=== PATIENT | female | born 1960 | race Caucasian/White ===

== ENCOUNTER 2017-02-06 15:39 | Emergency (ER) | payer MEDICAID ==
[~2017-02-06] VITALS: Ht 165.1 cm; Wt 63.5 kg
[2017-02-06 15:40] VITALS: BP_SYST 112
--- NOTE | 2017-02-06 15:40 | NUR ---
Patient triaged and placed in waiting room. VSS and patient appears in no acute distress at this time. Accompanied by SELF, awaiting available bed, and MD notified of need for MSE.
--- NOTE | 2017-02-06 15:45 | NUR ---
Kelli RAY saw the pt in triage room to examination.
--- NOTE | 2017-02-06 17:00 | NUR ---
Pt was brought to bed 4 with complaints of right shoulder pain, pt states was lifting luggage and fell and the luggage fell on the pt's shoulder yesterday. Pt denies hitting head or loss of consciousness, n/v or fever. Pt ambulated into the ER with no noted difficulty and x ray was performed in the waiting room and there is a fracture to the right shoulder, pain medication will be given and a sling will be applied.
[2017-02-06] MEDS ORDERED: MORPHINE SULFATE 10 MG/ML VIAL IM ONE (17:15)
[2017-02-06] MEDS ORDERED: DIPHENHYDRAMINE INJ 50 MG/ML VIAL IM ONE (17:15)
[2017-02-06 18:00] VITALS: BP_SYST 115
--- NOTE | 2017-02-06 18:00 | NUR ---
Patient given written and verbal discharge instructions and verbalizes understanding. ER MD discussed with patient the results and treatment provided. Patient in stable condition. ID arm band removed. Rx of tramadol and motrin given. Patient educated on pain management and to follow up with PMD. Pain Scale 3. Kelli ORTHOPAEDIC PHYSICIAN ASSISTANT is aware and pain medication was given here and prescription was given for home, pt states will take when home. Opportunity for questions provided and answered.
== END 2017-02-06 18:00 | disposition home or self-care (01) ==
LOC: SED 15:39
DX: S42.391A Other fracture of shaft of right humerus, initial encounter for closed fracture (principal); X50.9XXA Other and unspecified overexertion or strenuous movements or postures, initial encounter; Y93.89 Activity, other specified; Y92.89 Other specified places as the place of occurrence of the external cause; Y99.8 Other external cause status
CPT/HCPCS: 73030; 96372; 99284; J1200; J2270

== ENCOUNTER 2017-02-08 11:15 | Emergency (ER) | payer MEDICAID ==
[~2017-02-08] VITALS: Ht 165.1 cm; Wt 59.0 kg
[2017-02-08 11:15] VITALS: BP_SYST 145
[2017-02-08 13:16] VITALS: BP_SYST 137
== END 2017-02-08 13:16 | disposition home or self-care (01) ==
LOC: SED 11:15
DX: M25.511 Pain in right shoulder (principal)
CPT/HCPCS: 99283

== ENCOUNTER 2017-07-02 11:40 | Emergency (ER) | payer MEDICAID ==
[~2017-07-02] VITALS: Ht 165.1 cm; Wt 63.5 kg
[2017-07-02 11:53] VITALS: BP_SYST 147
--- NOTE | 2017-07-02 12:04 | NUR ---
Patient to ER bed 3 to gown for evaluation. Side rails up. Report given to Maylin SHANKAR.
--- NOTE | 2017-07-02 12:05 | NUR ---
ER at bedside examining patient.
--- NOTE | 2017-07-02 12:13 | NUR ---
Pt complains of pain to right arm for the past week, pt states there was a FX 6 months ago and still hurts. Pt is able to move arm but sometimes when moving the arm, there is sharp pain and feels "like it is going to snap." Pt ambulated to ER with no noted difficulty. No other injuries/complaints per pt or noted.
--- NOTE | 2017-07-02 12:35 | NUR ---
Patient given written and verbal discharge instructions and verbalizes understanding. ER MD discussed with patient the results and treatment provided. Patient in stable condition. ID arm band removed. Rx of norco and flexeril given. Patient educated on pain management and to follow up with PMD. Pain Scale 4. Dr Johnson is aware, prescription for home was given, pt states will take medication at home Opportunity for questions provided and answered.
[2017-07-02 12:36] VITALS: BP_SYST 140
== END 2017-07-02 12:36 | disposition home or self-care (01) ==
LOC: SED 11:40
DX: G89.29 Other chronic pain (principal); M79.601 Pain in right arm; F41.9 Anxiety disorder, unspecified
CPT/HCPCS: 99283

== ENCOUNTER 2017-07-11 15:08 | Emergency (ER) | payer MEDICAID ==
[~2017-07-11] VITALS: Ht 165.1 cm; Wt 63.5 kg
[2017-07-11 15:14] VITALS: BP_SYST 124
--- NOTE | 2017-07-11 15:17 | NUR ---
Patient to ER bed H1 to gown for evaluation. Side rails up.
--- NOTE | 2017-07-11 15:18 | NUR ---
Pt complains pain to right shoulder that radiates to back for two weeks. Pt states pain varies from "shooting to sharp and sometimes dull/aching." Pt denies N/V. No deformities noted. Intact CMS. Pt states she has history of fracture to right arm and has arthritis. No other injuries/complaints per patient or noted.
--- NOTE | 2017-07-11 15:19 | NUR ---
ER Dr. Esteves at bedside examining patient.
[2017-07-11] MEDS: IBUPROFEN 600 MG TABLET PO ONE (15:29)
[2017-07-11] MEDS: ACETAMINOPHEN 325 MG TABLET PO ONE (15:29)
--- NOTE | 2017-07-11 15:30 | NUR ---
Medication was given, pt tolerated well. No adverse reaction, will continue Addendum: 07/11/17 at 1532 by [email or web address] to monitor.
[2017-07-11 16:59] VITALS: BP_SYST 124
--- NOTE | 2017-07-11 16:59 | NUR ---
Patient given written and verbal discharge instructions and verbalizes understanding. ER MD discussed with patient the results and treatment provided. Patient in stable condition. ID arm band removed. Rx of Zofran and Tramadol given. Patient educated on pain management and to follow up with PMD. Pain Scale 3. Dr. Etseves is aware, medications were given here and prescription home. Opportunity for questions provided and answered.
== END 2017-07-11 16:59 | disposition home or self-care (01) ==
LOC: SED 15:08
DX: G89.29 Other chronic pain (principal); M25.511 Pain in right shoulder; F41.9 Anxiety disorder, unspecified
CPT/HCPCS: 73030; 73060-TC; 99284

== ENCOUNTER 2017-12-04 17:17 | Emergency (ER) | payer MEDICAID ==
[~2017-12-04] VITALS: Ht 162.6 cm; Wt 63.5 kg
[2017-12-04 17:23] VITALS: BP_SYST 134
[2017-12-04] MEDS ORDERED: DEXAMETHASONE SOD PHOSPHATE 10 MG/ML VIAL IM ONE (18:00)
[2017-12-04] MEDS ORDERED: KETOROLAC TROMETHAMINE 30 MG VIAL IM ONE (18:00)
[2017-12-04 18:26] LABS: BILIRUBIN,URINE NEGATIVE (NEGATIVE); BLOOD, URINE NEGATIVE (NEGATIVE); CLARITY/URINE SL HAZY (CLEAR); COLOR,URINE YELLOW (YELLOW); GLUCOSE,URINE NEGATIVE (NEGATIVE); KETONES,URINE NEGATIVE (NEGATIVE); LEUKOCYTE ESTERASE ,URINE TRACE (NEGATIVE); NITRITE, URINE NEGATIVE (NEGATIVE); PROTEIN URINE NEGATIVE (NEGATIVE); UROBILINOGEN,URINE 0.2 (0.2-1.0)
[2017-12-04 18:55] LABS: BACTERIA,URINE FEW /HPF (None Seen); RBC,URINE 0-3 /HPF (0-3)
[2017-12-04 19:23] VITALS: BP_SYST 130
== END 2017-12-04 19:23 | disposition home or self-care (01) ==
LOC: SED 17:17
DX: M54.16 Radiculopathy, lumbar region (principal); N39.0 Urinary tract infection, site not specified; F41.9 Anxiety disorder, unspecified; F17.210 Nicotine dependence, cigarettes, uncomplicated; Z71.6 Tobacco abuse counseling
CPT/HCPCS: 81000; 87086; 96372; 99284; J1100; J1885

== ENCOUNTER 2017-12-06 16:21 | Emergency (ER) | payer MEDICAID ==
[~2017-12-06] VITALS: Ht 165.1 cm; Wt 63.5 kg
[2017-12-06 16:27] VITALS: BP_SYST 125
[2017-12-06] MEDS ORDERED: KETOROLAC TROMETHAMINE 60 MG/2 ML VIAL IM ONE (16:45)
[2017-12-06] MEDS ORDERED: HYDROcodone/ACETAMIN 10-325 MG TAB PO ONE (16:45)
[2017-12-06 16:57] LABS: BILIRUBIN,URINE NEGATIVE (NEGATIVE); BLOOD, URINE NEGATIVE (NEGATIVE); CLARITY/URINE CLEAR (CLEAR); COLOR,URINE YELLOW (YELLOW); GLUCOSE,URINE NEGATIVE (NEGATIVE); KETONES,URINE NEGATIVE (NEGATIVE); LEUKOCYTE ESTERASE ,URINE NEGATIVE (NEGATIVE); NITRITE, URINE NEGATIVE (NEGATIVE); PROTEIN URINE NEGATIVE (NEGATIVE); UROBILINOGEN,URINE 0.2 (0.2-1.0)
[2017-12-06 17:30] VITALS: BP_SYST 125
== END 2017-12-06 17:30 | disposition home or self-care (01) ==
LOC: SED 16:21
DX: M54.30 Sciatica, unspecified side (principal); F41.9 Anxiety disorder, unspecified; R03.0 Elevated blood-pressure reading, without diagnosis of hypertension
CPT/HCPCS: 72100; 81003; 81025; 96372; 99285; J1885

== ENCOUNTER 2017-12-14 15:27 | Emergency (ER) | payer MEDICAID ==
[~2017-12-14] VITALS: Ht 165.1 cm; Wt 63.5 kg
[2017-12-14 15:37] VITALS: BP_SYST 126
[2017-12-14] MEDS ORDERED: KETOROLAC TROMETHAMINE 30 MG VIAL IM ONE (16:00)
[2017-12-14] MEDS ORDERED: HYDROcodone/ACETAMIN 5-325 MG TAB (NORCO/ VICODIN) PO ONE (16:00)
[2017-12-14 17:05] VITALS: BP_SYST 126
== END 2017-12-14 17:05 | disposition home or self-care (01) ==
LOC: SED 15:27
DX: M54.41 Lumbago with sciatica, right side (principal); F17.210 Nicotine dependence, cigarettes, uncomplicated; F41.9 Anxiety disorder, unspecified; R03.0 Elevated blood-pressure reading, without diagnosis of hypertension
CPT/HCPCS: 96372; 99283; J1885

== ENCOUNTER 2018-01-18 23:16 | Inpatient (IN) | payer MEDICAID ==
[~2018-01-18] VITALS: Ht 165.1 cm; Wt 63.0 kg
[2018-01-18 23:30] VITALS: BP_SYST 156
--- NOTE | 2018-01-19 00:46 | NUR ---
Placed in room 03 . Placed on surveillance system monitor, blood pressure machine and pulse oximeter. To gown for exam. Side rails up. Report given to RAAD Mota.
--- NOTE | 2018-01-19 00:50 | NUR ---
Patient to ER via triage with c/o mid-abdominal pain with nausea/vomiting since 1800. Patient is awake, alert and oriented in no acute distress, vital signs stable, respirations even and unlabored, skin warm and dry to touch. Awaiting evaluation by ER MD, will continue to observe and assess.
--- NOTE | 2018-01-19 01:30 | NUR ---
Note indigo in EDM - 01/19/18 at 0140 by PRINCESS Patient concerned about dehydration due to vomiting. Patient reports no decrease in urine output. mucus membranes are pink/moist. Awaiting evaluation by JORGE ALBERTO LUKE.
--- NOTE | 2018-01-19 01:30 | NUR ---
Dr Guerrero at bedside to evaluate patient.
--- NOTE | 2018-01-19 01:35 | NUR ---
Renay sood in [facility] - 01/19/18 at [email or web address] Guerrero at bedside to evaluate patient.
[2018-01-19] MEDS ORDERED: NACL 0.9% 1,000 ML IV ONE (02:02)
[2018-01-19] MEDS ORDERED: ONDANSETRON HCL 4 MG/2 ML VIAL IVP ONE (02:15)
[2018-01-19] MEDS ORDERED: METOCLOPRAMIDE HCL 10 MG/2 ML VIAL IVP ONE (02:15)
[2018-01-19] MEDS ORDERED: MORPHINE 2 MG/ML INJ. SYRINGE IVP ONE (02:15)
[2018-01-19] MEDS ORDERED: DIPHENHYDRAMINE INJ 50 MG/ML VIAL IVP ONE (02:15)
--- NOTE | 2018-01-19 02:30 | NUR ---
Patient resting quietly in no acute distress, vital signs stable, respirations even and unlabored, skin warm and dry to touch.
[2018-01-19 02:40] LABS: BASOPHILS # (AUTO) 0.1 K/uL (0.0-0.2); BASOPHILS % (AUTO) 0.7 % (0.0-2.0); EOSINOPHILS % (AUTO) 0.1 % (0.0-4.0); HEMATOCRIT 39.4 % (36-48); HEMOGLOBIN 13.4 g/dL (12.0-16.0); LYMPHOCYTES # (AUTO) 1.3 K/uL (1.0-5.5); LYMPHOCYTES % (AUTO) 9.6 % (20.5-51.5); MEAN CORPUSCULAR HEMOGLOBIN 31 pg (27-31); MEAN CORPUSCULAR HGB CONC 34 % (32-36); MEAN CORPUSCULAR VOLUME 92 fL (79.0-98.0); MONOCYTES # (AUTO) 0.4 K/uL (0.0-1.0); MONOCYTES % (AUTO) 2.8 % (1.7-9.3); NEUTROPHILS # (AUTO) 12.1 K/uL (1.8-7.7); PLATELET COUNT (AUTO) 628 K/uL (130-430); RED BLOOD CELL COUNT(AUTO) 4.28 MIL/uL (4.2-6.2); WHITE BLOOD COUNT (AUTO) 13.9 K/uL (4.8-10.8)
--- NOTE | 2018-01-19 02:55 | NUR ---
Family contact: Jarvis() [phone], call with any updates or if patient is discharged/admit
[2018-01-19 02:57] LABS: CALCIUM 9.5 mg/dL (8.4-11.0); CREATININE 0.86 mg/dL (0.55-1.30); POTASSIUM 3.5 mmol/L (3.5-5.1)
[2018-01-19 03:02] LABS: TOTAL BILIRUBIN 0.4 mg/dL (0.0-1.0)
[2018-01-19 03:28] LABS: NEUTROPHILS % (AUTO) 86.8 % (40.0-70.0)
--- NOTE | 2018-01-19 03:30 | NUR ---
Recieved Report from Nakul SHANKAR. Will assume care at this time. Patient sleeping in bed. No acute distress noted at this time. Will continue to monitor.
[2018-01-19] MEDS ORDERED: IBUP-1971 PO (03:58)
--- NOTE | 2018-01-19 03:58 | NUR ---
Medication reconciliation completed with information provided by patient. Any prior medication reconciliation on file was reviewed and corrected.
[2018-01-19 04:03] LABS: BILIRUBIN,URINE NEGATIVE (NEGATIVE); BLOOD, URINE NEGATIVE (NEGATIVE); CLARITY/URINE SL HAZY (CLEAR); COLOR,URINE YELLOW (YELLOW); GLUCOSE,URINE NEGATIVE (NEGATIVE); KETONES,URINE NEGATIVE (NEGATIVE); LEUKOCYTE ESTERASE ,URINE NEGATIVE (NEGATIVE); NITRITE, URINE NEGATIVE (NEGATIVE); PROTEIN URINE TRACE (NEGATIVE); UROBILINOGEN,URINE 0.2 (0.2-1.0)
--- NOTE | 2018-01-19 04:30 | NUR ---
Patient is calmly resting in ER bed, no signs of distress noted. Vital signs are within therapeutic range.
--- NOTE | 2018-01-19 05:00 | NUR ---
End of life care decisions discussed with by Dr. Zafar. Opportunity for questions and concerns addressed. Patient's code status is Full Code paperwork completed and placed in chart.
--- NOTE | 2018-01-19 05:10 | NUR ---
Patient transported off unit for CT of ABD w/ contrast. Consent signed and placed to chart.
--- NOTE | 2018-01-19 05:21 | NUR ---
Patient returned to unit.
--- NOTE | 2018-01-19 05:40 | NUR ---
ED MD Zafar at bedside communicating with patient about possible admission.
[2018-01-19] MEDS ORDERED: D5/0.45 NS 1,000 ML IV SCH (06:15)
--- NOTE | 2018-01-19 06:24 | NUR ---
Patient is sleeping in ER bed, no signs of distress noted. Vitals are within therapeutic range.
--- NOTE | 2018-01-19 06:28 | NUR ---
Family contact: Daughter Almaz called and left contact info for discharge or admission-
--- NOTE | 2018-01-19 07:18 | NUR ---
Received report from RAAD Wise. All care endorsed.
[2018-01-19] MEDS ORDERED: KCL 20 mEq in D5/0.45NS 1000mL 1,000 ML IV ONE (07:30)
--- NOTE | 2018-01-19 07:40 | NUR ---
Admission Note Received patient from ER with diagnosis of pancretitis. Initial Plan of Care discussed-patient verbalized understanding. Oriented to room, call light, pain management and safety.
[2018-01-19 07:41] VITALS: BP_SYST 109
--- NOTE | 2018-01-19 07:45 | NUR ---
Patient will be admitted to care of Dr. Sin. Admitted to Med Surg unit. Will go to room 125 B. Belongings list completed. Summary report printed. Report will be given at bedside.
--- NOTE | 2018-01-19 08:33 | NUR ---
rounds pt stable resting comfortably. dr tyson here .new order received carried out. iv line lac#20 flushed well. no s/s of infiltration noted. iv fluid d51/2 ns with 20 meq kcl at 150 ml/hr started as ordered infusing well. will continue to monitor
[2018-01-19] MEDS ORDERED: ACETAMINOPHEN 325 MG TABLET PO PRN (08:45)
[2018-01-19] MEDS ORDERED: ONDANSETRON HCL 4 MG/2 ML VIAL IVP PRN (08:45)
--- NOTE | 2018-01-19 09:10 | NUR ---
GI CONSULT CALLED DR ARGUETA EXCHANGE [phone] . INFORMED ABOUT CONSULT FOR ACUTE PANCRETITIS. DR TREJO HERE NOTIFIED ABOUT CONSULT
--- NOTE | 2018-01-19 09:15 | NUR ---
NURSING NOTES RECEIVED REPORT AND PATIENT FROM RAAD TAMAYO. PATIENT IN BED, SLEEPING, RESPONDS EASILY TO STIMULI. DENIES ANY PAIN AT THIS TIME. VS STABLE. NO RESPIRATORY DISTRESS NOTED. REMIND PATIENT TO NOT TO GET OUT OF BED BY HERSELF AND TO CALL FOR ASSISTANCE. CALL LIGHT WITHIN REACH, WILL CONTINUE TO MONITOR.
[2018-01-19 09:30] VITALS: BP_SYST 132
--- NOTE | 2018-01-19 10:15 | NUR ---
PICKED UP PATIENT PICKED UP FOR EGD VIA WHEELCHAIR. PATIENT REMAINS AWAKE, ALERT, VERBALLY RESPONSIVE. DENIES ANY PAIN AT THIS TIME. VS STABLE. CALL LIGHT WITHIN REACH, WILL CONTINUE TO MONITOR.
[2018-01-19] MEDS ORDERED: fentaNYL CITRATE/PF 100 MCG/2 ML AMP ONE (10:16)
[2018-01-19] MEDS ORDERED: MIDAZOLAM HCL 5 MG/5 ML VIAL ONE (10:16)
[2018-01-19] MEDS ORDERED: BENZOCAINE 20% 0.5mL UD SPRAY MM ONE (10:20)
--- NOTE | 2018-01-19 11:08 | NUR ---
CAME BACK PATIENT CAME BACK FROM EGD. PATIENT IS STABLE.
[2018-01-19] MEDS: cefTRIAXone 1 GM in D5W 50 ML IV SCH (11:24)
[2018-01-19] MEDS: THIAMINE HCL 100 MG TABLET PO SCH (11:25)
[2018-01-19] MEDS: PANTOPRAZOLE SODIUM 40 MG/VIAL (PROTONIX) IVP SCH (11:25)
[2018-01-19] MEDS: ENOXAPARIN SODIUM 40 MG/0.4 ML SYRINGE SUBCUT SCH (11:27)
[2018-01-19 13:00] VITALS: BP_SYST 125
--- NOTE | 2018-01-19 13:50 | NUR ---
DR. FERRARA MAKING ROUNDS DR. FERRARA MAKING ROUNDS, NOTIFIED OF THE EGD RESULT. NO NEW ORDERS GIVEN. CALL LIGHT WITHIN REACH, WILL CONTINUE TO MONITOR.
--- NOTE | 2018-01-19 15:25 | NUR ---
DC planning: Returned call to dora Toussaint at [facility] # [phone] and faxed HP, GI consult and EGD result to per Breana 's request. The pt. is capitated to [facility]. Dr. Sin made aware and to provide the peer to peer report for pt transferring to network. The pt. made aware , she is agreeable with the transfer.
[2018-01-19] MEDS: MORPHINE 2 MG/ML INJ. SYRINGE IVP PRN ×2 (15:26→20:56)
--- NOTE | 2018-01-19 15:26 | NUR ---
PAIN MANAGEMENT PATIENT IN BED, COMPLAINING OF ABDOMINAL PAIN WITH INTENSITY OF 6/10, IV PRN PAIN MEDICATION GIVEN ORDERED, WILL REASSESS.
[2018-01-19 16:30] VITALS: BP_SYST 135
--- NOTE | 2018-01-19 18:25 | NUR ---
CLOSING NOTE PATIENT IN BED, SLEEPING AT THIS TIME, RESPONDS EASILY TO STIMULI. ENCOURAGE PATIENT TO EAT DINNER. PATIENT IS CONTINENT BOWEL AND BLADDER, AMBULATES WITH ASSISTANCE. REMIND PATIENT TO CALL FOR HELP AND NOT TO GET UP UNASSISTED. BED LOCKED, ON LOWEST POSITION. CALL LIGHT WITHIN REACH, WILL GIVE REPORT TO EMERGENCY VEHICLE DRIVER NURSE.
[2018-01-19 20:00] VITALS: BP_SYST 107
--- NOTE | 2018-01-19 20:00 | NUR ---
Initial Notes /Communication with [facility] Received patient resting in bed with eyes closed, easily aroused. Patient denies any acute distress or pain at this time. Vital signs stable. Breathing is even and unlabored. IV site patent/clean/dry. Needs addressed. Call light in hand, fall precautions in place. Patient states she is not willing to be transferred to [facility] because it is too far for her family. Patient states she will leave AMA if forced to be transferred. Advised patient that there is no transfer order at this time, and nurse will update her of any changes. Received phone call from Gustavo from [facility], callback [phone]. Per Gustavo, there is no accepting MD at this time. Informed Gustavo that there is no transfer order entered, and patient is not agreeable with transfer.
[2018-01-19] MEDS: LR 1,000 ML IV SCH (20:52)
--- NOTE | 2018-01-19 22:00 | NUR ---
Nursing Notes Patient resting in bed, awake. Patient denies any acute distress or pain at this time. IV site patent/clean/dry. Needs addressed. Call light in hand, fall precautions in place.
--- NOTE | 2018-01-20 00:16 | NUR ---
Nursing Notes Patient resting in bed with eyes closed. No distress noted, breathing is even and unlabored. IV site patent/clean/dry. Call light in hand, will continue to monitor.
[2018-01-20 00:45] VITALS: BP_SYST 121
--- NOTE | 2018-01-20 02:00 | NUR ---
Nursing Notes Patient resting in bed with eyes closed, easily aroused. Patient denies any acute distress. Breathing even and unlabored. IV site patent/clean/dry. Assisted patient with toileting needs. Needs addressed. Call light in hand, fall precautions in place.
[2018-01-20] MEDS: LR 1,000 ML IV SCH (02:21)
[2018-01-20] MEDS: MORPHINE 2 MG/ML INJ. SYRINGE IVP PRN ×4 (02:28→20:03)
--- NOTE | 2018-01-20 04:00 | NUR ---
Nursing Notes Patient resting in bed with eyes closed. No distress noted, breathing is even and unlabored. IV site patent/clean/dry. Call light in hand, fall precautions in place.
[2018-01-20 06:31] LABS: BASOPHILS # (AUTO) 0.1 K/uL (0.0-0.2); BASOPHILS % (AUTO) 1.6 % (0.0-2.0); EOSINOPHILS % (AUTO) 0.6 % (0.0-4.0); HEMATOCRIT 33.5 % (36-48); HEMOGLOBIN 11.6 g/dL (12.0-16.0); LYMPHOCYTES % (AUTO) 42.3 % (20.5-51.5); MEAN CORPUSCULAR HEMOGLOBIN 32 pg (27-31); MEAN CORPUSCULAR HGB CONC 35 % (32-36); MEAN CORPUSCULAR VOLUME 92 fL (79.0-98.0); MONOCYTES # (AUTO) 0.5 K/uL (0.0-1.0); MONOCYTES % (AUTO) 6.8 % (1.7-9.3); NEUTROPHILS # (AUTO) 3.5 K/uL (1.8-7.7); NEUTROPHILS % (AUTO) 48.7 % (40.0-70.0); PLATELET COUNT (AUTO) 482 K/uL (130-430); RED BLOOD CELL COUNT(AUTO) 3.64 MIL/uL (4.2-6.2); RED CELL DISTRIBUTION WIDTH 13.9 % (9.0-15.0); WHITE BLOOD COUNT (AUTO) 7.1 K/uL (4.8-10.8)
--- NOTE | 2018-01-20 06:36 | NUR ---
Closing Notes Patient resting in bed with eyes closed, easily aroused. Patient denies any acute distress or pain at this time. Breathing is even and unlabored on room air. IV site patent/clean/dry, no S/S infection/infiltration noted. Needs addressed throughout shift. Call light in hand, fall precautions in place. Will continue to monitor for changes and safety, and endorse all patient care/needs to oncoming nurse.
[2018-01-20 06:45] LABS: CALCIUM 8.7 mg/dL (8.4-11.0); CREATININE 0.84 mg/dL (0.55-1.30); POTASSIUM 3.7 mmol/L (3.5-5.1)
[2018-01-20 08:00] VITALS: BP_SYST 135
--- NOTE | 2018-01-20 08:00 | NUR ---
Opening Note Report received from [facility] shift nurse. Patient is currently resting in bed. No complaints of abdominal pain at the moment. IV is on the LAC 20g saline locked. Call light is within reach and bed is in low position. Will continue to monitor.
[2018-01-20] MEDS: PANTOPRAZOLE SODIUM 40 MG/VIAL (PROTONIX) IVP SCH (09:13)
[2018-01-20] MEDS: cefTRIAXone 1 GM in D5W 50 ML IV SCH (09:14)
[2018-01-20] MEDS: THIAMINE HCL 100 MG TABLET PO SCH (09:14)
[2018-01-20] MEDS: ENOXAPARIN SODIUM 40 MG/0.4 ML SYRINGE SUBCUT SCH (09:33)
--- NOTE | 2018-01-20 10:17 | NUR ---
DC PLANNING Called & spoke maicol Toussaint @ [facility], ph [phone], Pt OON capitated to [facility]. States to done already, that pending avail bed @ [facility], no avail bed @ this time. Addendum: 01/20/18 at 1359 by Luna Savage RN Received call from Breana Sanchez's tech support ph [phone], have bed avail @ [facility]. Pt going to room 306A under Dr Juarez, # for report [phone]. Contracted ambulance: [facility], [facility], [facility], [facility], or [facility] w auth #[id number]. Informed pt @ bedside states that is possibly going to dc today. Discussed w pt's nurse, Heaven, states per Dr Sin if test neg plan was for dc today, still waiting for Small bowl series to be done. Called & informed Breana, ph [phone], states will wait for another hour or so for test to be complete but if not going to dc today needs to be transferred. Addendum: 01/20/18 at 1542 by Luna Savage RN Spoke w pt's nurse Collado, called radiology & do not know how long will take for SBFT to be complete. Called & spoke w Dr Sin to discuss if going to dc today, not sure if will be stable to dc today @ this time, gave ph order to transfer to contracted hospital. Spoke w pt @ bedside & informed, states wants to discuss w family. Came back to bedside, pt states refusing to transfer to contracted hospital. Pt aware that per insurance will deny coverage & pt will be financially responsible for hospital bill. Called & informed Breana @ [facility] ph [phone], states going to deny & pt financially responsible since refusing to transfer to contracted hospital, states will fax denial letter to present to pt.
--- NOTE | 2018-01-20 10:20 | NUR ---
RN Notes Patient is current in x-ray.
[2018-01-20] MEDS ORDERED: BARIUM SULFATE 135 ML SUSP.RECON (E-Z-HD) PO ONE (11:00)
--- NOTE | 2018-01-20 12:47 | NUR ---
RN Notes Patient returned from x-ray. Exam is not complete. Patient is refusing to transfer to contracted facility. Dr. Butlerium informed.
--- NOTE | 2018-01-20 14:34 | NUR ---
Rounds Patient is resting in bed currently NPO for small bowel series.
--- NOTE | 2018-01-20 14:35 | NUR ---
Dietitian Recommendations * Recommend continuing clear liquid diet per LP, RD Please refer to Nutrition Assessment for details.
[2018-01-20 16:00] VITALS: BP_SYST 135
[2018-01-20] MEDS ORDERED: LORazepam 2 MG/ML VIAL IVP ONE (16:15)
--- NOTE | 2018-01-20 16:25 | NUR ---
RN Notes Patient is getting x-rays done at the bedside.
--- NOTE | 2018-01-20 18:50 | NUR ---
Closing Note Patient is in stable condition. Upper GI series and small bowel follow through are complete. Advanced diet to full liquids per md order. call light is within reach and bed is in low position. Will endorse care to the oncoming shift.
--- NOTE | 2018-01-20 19:44 | NUR ---
Initial Note Received patient awake, alert and oriented lying in bed. No SOB noted. Denies any n/v at this time. Complain of moderate abdominal pain and will medicate. Assisted patient to the bathroom. Patient has a steady gait and no SOB. Saline lock. Skin intact and no peripheral edema noted. Care and monitoring will be provided. Call light within reach. Needs attended. Bed alarm on and at low position at all times. Kept warm and comfortable. Safety and fall precautions observed.
[2018-01-20 20:00] VITALS: BP_SYST 137
--- NOTE | 2018-01-20 20:03 | NUR ---
RN Note Medicated for moderate abdominal pain. Will continue to monitor. Patient is aware of the MD's order for transfer to a contracted hospital and patient doesn't want to be transferred there instead she wants to go home. Comfort measures provided. Needs attended. Call light within reach and bed alarm is on and at lowest position. Kept warm and comfortable.
--- NOTE | 2018-01-20 22:00 | NUR ---
RN Note Awake and alert. No complain of abdominal pain but feels mild pain on her right sciatica when she moves. Assisted to the bathroom and back to bed with steady gait no SOB. Needs attended. Kept warm and comfortable.
[2018-01-21] VITALS: BP_SYST 128
[2018-01-21] MEDS: MORPHINE 2 MG/ML INJ. SYRINGE IVP PRN ×3 (00:55→09:38)
--- NOTE | 2018-01-21 01:00 | NUR ---
RN Note Patient complain of moderate abdominal pain. Assisted to the bathroom and back to bed with steady gait. Medicated for pain. Will continue to monitor. Kept warm and comfortable.
--- NOTE | 2018-01-21 03:30 | NUR ---
RN Note Sleeping at this time. No SOB or grimacing noted.
--- NOTE | 2018-01-21 06:30 | NUR ---
End Note Afebrile. VS stable. No complain of pain, SOB or n/v at this time. Medicated for pain three times all night. Ambulates to the bathroom with steady gait and assist. Complain of abdominal pain and right sciatica pain. Will endorse. Might be DC today after upper GI series results comes up negative. Patient prefers to go home rather than be transferred to a contract hospital-will endorse. Care and monitoring provided per protocol. Needs attended. Call light within reach. Bed alarm on and at lowest position at all times. Kept clean, dry and comfortable.
[2018-01-21 08:00] VITALS: BP_SYST 114
--- NOTE | 2018-01-21 08:00 | NUR ---
Opening Note received report from mine shifter RN, pt resting in bed, A&Ox4, respirations even and unlabored on room air, IV site clean, dry, and intact, pt reports pain is controlled at this time, pt educated on use of call light and asked to call for assistance, pt verbalized understanding, call light in reach, bed in low position, bed alarm on, fall and aspiration precautions in place.
--- NOTE | 2018-01-21 08:30 | NUR ---
MD Rounds MD Rounds with Dr. García, orders to advance diet to mechanical soft.
[2018-01-21] MEDS: cefTRIAXone 1 GM in D5W 50 ML IV SCH (09:00)
[2018-01-21] MEDS: THIAMINE HCL 100 MG TABLET PO SCH (09:01)
[2018-01-21] MEDS: PANTOPRAZOLE SODIUM 40 MG/VIAL (PROTONIX) IVP SCH (09:01)
[2018-01-21] MEDS: ENOXAPARIN SODIUM 40 MG/0.4 ML SYRINGE SUBCUT SCH (09:07)
--- NOTE | 2018-01-21 09:19 | NUR ---
Medication pt educated on medication use and side effects, pt verbalized understanding, tolerated medication administration well, fall and aspiration precautions in place.
--- NOTE | 2018-01-21 09:43 | NUR ---
Pain Management/Medication pt complaint of pain 6/10 to abdomen, pt educated on use and side effects of PRN pain medication, pt verbalized understanding, tolerated medication administration well, fall and aspiration precautions in place.
--- NOTE | 2018-01-21 12:00 | NUR ---
RN Rounds pt resting in bed, respirations even and unlabored, pt denies any pain at this time, pt ambulated to bathroom, steady gait noted, voided x1, pt ambulated back to bed, bed alarm on, fall and aspiration precautions in place.
[2018-01-21] MEDS: MORPHINE 4 MG/ML INJ. SYRINGE IVP PRN ×2 (13:49→18:21)
[2018-01-21 13:51] VITALS: BP_SYST 136
--- NOTE | 2018-01-21 14:05 | NUR ---
RN Rounds pt resting in bed, respirations even and unlabored, pt reports that pain is controlled at this time, ice chips provided per pt request, no additional needs at this time, fall and aspiration precautions in place.
--- NOTE | 2018-01-21 16:10 | NUR ---
RN Rounds pt resting in bed, respirations even and unlabored on room air, pt reports pain controlled at this time, no additional needs, fall and aspiration precautions in place.
--- NOTE | 2018-01-21 17:50 | NUR ---
Notes pt complaint of anxiety, pt educated on therapeutic breathing exercises, pt returned demonstration of therapeutic breathing exercises, TV provided for pt distraction, pt states that anxiety is relieved, pt up in bed eating dinner, no additional needs at this time, fall and aspiration precautions in place.
[2018-01-21 18:05] VITALS: BP_SYST 134
--- NOTE | 2018-01-21 18:25 | NUR ---
Pain Management/Medication pt complaint of pain 12/20 to abdomen, pt educated on use and side effects of PRN pain medications, pt verbalized understanding, tolerated medication administration well, no additional needs at this time, fall and aspiration precautions in place.
--- NOTE | 2018-01-21 18:56 | NUR ---
Closing Note pt resting in bed, A&Ox4, respirations even and unlabored on room air, pt reports pain controlled at this time, IV site clean, dry, and intact, pt tolerating mechanical soft diet well, no nausea or vomiting, pt educated on use of call light and asked to call for assistance, pt verbalized understanding, call light in reach, bed in low position, bed alarm on, fall and aspiration precautions in place, will endorse care to manager shift RN.
--- NOTE | 2018-01-21 19:30 | NUR ---
OPENING NOTE Patient is AAO x 4 and resting in bed, breathing even and unlabored with visible chest rise and fall. IV to right f/a is dry intact and saline locked. Denies any pain or discomfort. Plan of care discussed. Awaiting for Dr. Sin to see patient for possible discharge. Will monitor.
--- NOTE | 2018-01-21 19:38 | NUR ---
DR. FERRARA SAW PATIENT NEW ORDERS TO DISCHARGE TO HOME Patient saw patient and plan of care was discussed. Patient does not want to transfer to contracted hospital due to insurance issues and discussed concerns with MD to go home. MD ordered for patient to be discharged to home and to follow up with primary care physician next week.
[2018-01-21] MEDS ORDERED: PRO40 PO (19:55)
[2018-01-21] MEDS ORDERED: ACET325T53 PO (19:58)
[2018-01-21 20:01] VITALS: BP_SYST 127
[2018-01-21 20:07] VITALS: BP_SYST 127
--- NOTE | 2018-01-21 20:23 | NUR ---
D/C PATIENT TO HOME Patient given medication reconciliation form and D/C instructions. Exit Care provided. Patient verbalized understanding. MD discussed with patient the results and treatment provided. Ambulatory with steady gait for discharge to home. Patient in stable condition, ID band removed. IV catheter removed to right f/a, intact and dressing applied, no active bleeding. Rx of TYLENOL AND PROTONIX given. Copy also taken and filed in patient's chart. Patient educated on pain management. All belongings sent with patient. Patient assisted via wheelchair by TYLER Inman and mother, Orin to private vehicle.
== END 2018-01-21 20:23 | disposition home or self-care (01) | DRG 241 ==
LOC: SED 23:16 → SMU 01-19 07:24
PROVIDERS: ADMIT Family Medicine; ATTEND Family Medicine
PROC: 0DB68ZX Excision of Stomach, Via Natural or Artificial Opening Endoscopic, Diagnostic (ICD-10-PCS; principal; 2018-01-19 10:15)
DX: K29.00 Acute gastritis without bleeding (principal); K85.20 Alcohol induced acute pancreatitis without necrosis or infection; K70.9 Alcoholic liver disease, unspecified; K85.90 Acute pancreatitis without necrosis or infection, unspecified; D64.9 Anemia, unspecified; M06.9 Rheumatoid arthritis, unspecified; F10.20 Alcohol dependence, uncomplicated; K44.9 Diaphragmatic hernia without obstruction or gangrene; K86.0 Alcohol-induced chronic pancreatitis; Z79.1 Long term (current) use of non-steroidal anti-inflammatories (NSAID)
CPT/HCPCS: 36415; 43239; 74249; 76700-TC; 80048; 80053; 81003; 82150-TC; 83690-TC; 83735-TC; 85025; 87081; 96361; 96374; 96375; 99285; C9113; J0696; J1200; J1650; J2060; J2250; J2270; J2405; J2765; J3010; J7030; J7060; J7120